=== PATIENT | female | born 1960 | race Caucasian/White ===

== ENCOUNTER 2022-03-25 07:18 | Emergency (ER) | payer BC ==
[2022-03-25] MEDS ORDERED: Ketorolac Tromethamine 30 MG/ML VIAL ONE (08:20)
[2022-03-25] MEDS ORDERED: Morphine 4 MG/ML VIAL ONE (09:34)
== END 2022-03-25 10:44 | disposition home or self-care (01) ==
LOC: CSHERS 07:18
DX: S42.202A Unspecified fracture of upper end of left humerus, initial encounter for closed fracture (principal); I10 Essential (primary) hypertension; W18.40XA Slipping, tripping and stumbling without falling, unspecified, initial encounter
CPT/HCPCS: 96372; J1885; J2270